=== PATIENT | male | born 1975 | race Caucasian/White ===

== ENCOUNTER 2017-01-14 09:20 | Inpatient (IN) | payer BC ==
[~2017-01-14 09:20] MED LIST: COMPAZINE10 MG PO; FLOMAX0.4 M1 PO; HYDROCHLOROTHIA25 M1 PO; IBUPROFEN400 M1 PO; NAPROSYN500 M1 PO; NORCO 5-325 TA1 EACH PO; ZITHROMAX500 M2 PO
[2017-01-14 10:12] LABS: BASO % 0.8 % (0-2); BASO ABSOLUTE COUNT 0.1 tho/cmm (0.0-0.2); EOS % 0.5 % (0-7); HGB-HEMOGLOBIN 15.7 gm/dl (13.5-17.0); IMMATURE GRANULOCYTES ABSOLUTE 0.01 tho/cmm (0-0.03); IMMATURE GRANULOCYTES PERCENT 0.1 % (0-0.3); LYMPH % 19.4 % (20-45); LYMPH ABSOLUTE COUNT 1.5 tho/cmm (0.8-4.5); MCH (MEAN CORPUSCULAR HGB) 28.2 pg (28.0-32.0); MCHC MEAN CORPUSCULAR HGB CONC 34.1 % (32.0-36.0); MCV (MEAN CELL VOLUME) 82.6 fl (82.0-96.0); MEAN PLATELET VOLUME 9.7 cmc (9.4-12.4); MONO % 4.4 % (0-12); MONOCYTE ABSOLUTE COUNT 0.3 tho/cmm (0.0-1.2); NEUTROPHIL ABSOLUTE COUNT 5.8 tho/cmm (1.6-8.0); NEUTROPHIL-AUTOMATED 5.8 tho/cmm (1.6-8.0); NEUTROPHILS % 74.8 % (40-80); PLATELET COUNT 238 tho/cmm (150-450); RED BLOOD COUNT 5.57 mil/cmm (4.40-5.70); RED CELL DISTRIBUTION WIDTH 13.3 % (12.4-16.4); WHITE BLOOD COUNT 7.8 tho/cmm (4.0-10.0)
[2017-01-14 10:17] LABS: PROTHROMBIN TIME 11.2 SECONDS (9.0-13.6)
[2017-01-14] MEDS ORDERED: PRINIVIL20 M1 PO (10:17)
[2017-01-14] MEDS ORDERED: MOBIC7.5 M2 PO (10:18)
[2017-01-14 10:27] LABS: ANION GAP 12 mmol/L (0-20); BLOOD UREA NITROGEN 11 mg/dl (6-24); CALCIUM 9.2 mg/dl (8.5-10.5); CARBON DIOXIDE-VENOUS 25 mmol/L (22-32); CHLORIDE 108 mmol/l (96-110); GLUCOSE 108 mg/dL (70-110); POTASSIUM 4.3 mmol/L (3.7-5.1); SODIUM 141 mmol/L (135-145); eGFR VALUE FOR BLACK >90 mL/Min
[2017-01-14 14:57] LABS: HCT-HEMATOCRIT 43.4 % (36.0-53.5); HGB-HEMOGLOBIN 14.7 gm/dl (13.5-17.0); PLATELET COUNT 213 tho/cmm (150-450); RED CELL DISTRIBUTION WIDTH 13.2 % (12.4-16.4)
[2017-01-14 15:06] LABS: PROTHROMBIN TIME 11.9 SECONDS (9.0-13.6)
[2017-01-14 18:38] LABS: HCT-HEMATOCRIT 43.1 % (36.0-53.5); HGB-HEMOGLOBIN 14.7 gm/dl (13.5-17.0); MCV (MEAN CELL VOLUME) 82.9 fl (82.0-96.0); PLATELET COUNT 222 tho/cmm (150-450); RED CELL DISTRIBUTION WIDTH 13.4 % (12.4-16.4)
[2017-01-14 22:05] LABS: HCT-HEMATOCRIT 44.3 % (36.0-53.5); MCV (MEAN CELL VOLUME) 83.6 fl (82.0-96.0); PLATELET COUNT 213 tho/cmm (150-450); RED CELL DISTRIBUTION WIDTH 13.5 % (12.4-16.4)
[2017-01-14 22:13] LABS: PROTHROMBIN TIME 11.8 SECONDS (9.0-13.6)
[2017-01-15 00:09] LABS: HCT-HEMATOCRIT 43.9 % (36.0-53.5); HGB-HEMOGLOBIN 14.8 gm/dl (13.5-17.0); MCV (MEAN CELL VOLUME) 83.9 fl (82.0-96.0); PLATELET COUNT 193 tho/cmm (150-450); RED CELL DISTRIBUTION WIDTH 13.4 % (12.4-16.4)
[2017-01-15 00:15] LABS: PROTHROMBIN TIME 11.9 SECONDS (9.0-13.6)
[2017-01-15 05:26] LABS: HCT-HEMATOCRIT 43.9 % (36.0-53.5); HGB-HEMOGLOBIN 14.7 gm/dl (13.5-17.0); MCV (MEAN CELL VOLUME) 83.9 fl (82.0-96.0); PLATELET COUNT 188 tho/cmm (150-450); RED CELL DISTRIBUTION WIDTH 13.6 % (12.4-16.4)
[2017-01-15 05:48] LABS: ANION GAP 11 mmol/L (0-20); BLOOD UREA NITROGEN 13 mg/dl (6-24); CALCIUM 8.3 mg/dl (8.5-10.5); CARBON DIOXIDE-VENOUS 28 mmol/L (22-32); CHLORIDE 105 mmol/l (96-110); CREATININE 1.03 mg/dl (0.60-1.30); GLUCOSE 100 mg/dL (70-110); SODIUM 140 mmol/L (135-145); eGFR VALUE FOR BLACK >90 mL/Min
[2017-01-15 06:05] LABS: POTASSIUM 4.3 mmol/L (3.7-5.1)
[2017-01-15 11:57] LABS: HCT-HEMATOCRIT 45.2 % (36.0-53.5); HGB-HEMOGLOBIN 15.2 gm/dl (13.5-17.0); MCV (MEAN CELL VOLUME) 83.7 fl (82.0-96.0); PLATELET COUNT 172 tho/cmm (150-450); RED CELL DISTRIBUTION WIDTH 13.5 % (12.4-16.4)
[2017-01-15 13:29] LABS: INR 1.1 INR (0.9-1.1); PROTHROMBIN TIME 12.4 SECONDS (9.0-13.6)
[2017-01-15 17:03] LABS: HCT-HEMATOCRIT 47.2 % (36.0-53.5); MCV (MEAN CELL VOLUME) 83.8 fl (82.0-96.0); PLATELET COUNT 197 tho/cmm (150-450); RED CELL DISTRIBUTION WIDTH 13.4 % (12.4-16.4)
[2017-01-15 17:17] LABS: PROTHROMBIN TIME 12.1 SECONDS (9.0-13.6)
[2017-01-15 22:19] LABS: HCT-HEMATOCRIT 42.9 % (36.0-53.5); HGB-HEMOGLOBIN 14.6 gm/dl (13.5-17.0); MCV (MEAN CELL VOLUME) 83.6 fl (82.0-96.0); PLATELET COUNT 185 tho/cmm (150-450); RED CELL DISTRIBUTION WIDTH 13.3 % (12.4-16.4)
[2017-01-15 22:26] LABS: PROTHROMBIN TIME 11.5 SECONDS (9.0-13.6)
[2017-01-16] MEDS ORDERED: ASPIRIN325 M3 PO (09:57)
[2017-01-16] MEDS ORDERED: LOVENOX100 MG/1 M SC (09:59)
== END 2017-01-16 13:00 | DRG 565 ==
LOC: SHSA 09:20 → CCU 14:08 → PCUA 01-15 17:15
PROVIDERS: Radiology Diagnostic Radiology; ADMIT Radiology Diagnostic Radiology
DX: D16.22 Benign neoplasm of long bones of left lower limb (principal); I74.3 Embolism and thrombosis of arteries of the lower extremities; E66.09 Other obesity due to excess calories; I10 Essential (primary) hypertension; Z87.442 Personal history of urinary calculi; Z87.891 Personal history of nicotine dependence
CPT/HCPCS: C1769; C1887; J1200; J1644; J1650; J2250; J2270; J2997; J3010; J7030; J7050; Q9967

== ENCOUNTER 2017-01-19 06:45 | Inpatient (IN) | payer BC, SELFPAY ==
[~2017-01-19 06:45] MED LIST changes: +ASPIRIN325 M3 PO; +LOVENOX100 MG/1 M SC; +MOBIC7.5 M2 PO; +PRINIVIL20 M1 PO
[2017-01-19] MEDS ORDERED: XANAX0.25 M1 PO (07:06)
[2017-01-19 07:37] LABS: BASO % 0.6 % (0-2); BASO ABSOLUTE COUNT 0.1 tho/cmm (0.0-0.2); EOS % 2.4 % (0-7); EOSINOPHIL ABSOLUTE COUNT 0.2 tho/cmm (0.0-0.7); HCT-HEMATOCRIT 43.5 % (36.0-53.5); HGB-HEMOGLOBIN 14.8 gm/dl (13.5-17.0); LYMPH % 19.6 % (20-45); LYMPH ABSOLUTE COUNT 1.6 tho/cmm (0.8-4.5); MCH (MEAN CORPUSCULAR HGB) 27.9 pg (28.0-32.0); MCV (MEAN CELL VOLUME) 82.1 fl (82.0-96.0); MEAN PLATELET VOLUME 9.6 cmc (9.4-12.4); MONO % 10.1 % (0-12); MONOCYTE ABSOLUTE COUNT 0.8 tho/cmm (0.0-1.2); NEUTROPHIL ABSOLUTE COUNT 5.4 tho/cmm (1.6-8.0); NEUTROPHIL-AUTOMATED 5.4 tho/cmm (1.6-8.0); NEUTROPHILS % 67.3 % (40-80); PLATELET COUNT 249 tho/cmm (150-450); RED CELL DISTRIBUTION WIDTH 13.3 % (12.4-16.4)
[2017-01-19 07:48] LABS: ANION GAP 13 mmol/L (0-20); BLOOD UREA NITROGEN 15 mg/dl (6-24); CARBON DIOXIDE-VENOUS 27 mmol/L (22-32); CHLORIDE 105 mmol/l (96-110); CREATININE 1.03 mg/dl (0.60-1.30); GLUCOSE 110 mg/dL (70-110); SODIUM 141 mmol/L (135-145); eGFR VALUE FOR BLACK >90 mL/Min
[2017-01-19 07:52] LABS: POTASSIUM 4.4 mmol/L (3.7-5.1)
[2017-01-22 07:01] LABS: HGB-HEMOGLOBIN 12.4 gm/dl (13.5-17.0); PLATELET COUNT 262 tho/cmm (150-450)
[2017-01-23] MEDS ORDERED: PERCOCET 5-3251 EACH PO (10:44)
[2017-01-23] MEDS ORDERED: LYRICA75 MG/CAP PO (10:44)
== END 2017-01-23 12:00 | DRG 254 ==
LOC: SHSB 06:45 → ORW 10:50 → PACU 12:40 → 5WD 14:45
PROVIDERS: ADMIT Surgery Vascular Surgery
PROC: 041L09L Bypass Left Femoral Artery to Popliteal Artery with Autologous Venous Tissue, Open Approach (ICD-10-PCS; principal; 2017-01-19)
PROC: 0QBH0ZZ Excision of Left Tibia, Open Approach (ICD-10-PCS; 2017-01-19)
DX: I77.1 Stricture of artery (principal); I10 Essential (primary) hypertension; D16.22 Benign neoplasm of long bones of left lower limb; E66.3 Overweight; Z68.35 Body mass index [BMI] 35.0-35.9, adult
CPT/HCPCS: C1713; J0690; J1170; J1644; J1650; J2250; J2270; J2405; J3010; J7030; Q9968